=== PATIENT | male | born 1975 | race Caucasian/White ===

== ENCOUNTER 2017-04-06 13:23 | Emergency (ER) | payer MEDICAID ==
[2017-04-06] MEDS ORDERED: KETOROLAC 30 MG/ML 1 ML VIAL IVP STA (14:25)
[2017-04-06] MEDS ORDERED: SODIUM CHLORIDE 0.9% 1,000 ML IV STA (14:25)
--- NOTE | 2017-04-06 14:29 | ED ---
General Adult HPI - General Chief complaint: Abdominal Pain Stated complaint: Back Pain/ poss kidney stones Time Seen by Provider: 04/06/17 14:00 Source: patient, RN notes reviewed Mode of arrival: ambulatory Limitations: no limitations - History of Present Illness Initial comments: This is a 41-year-old male who presents emergency department stating that he has had a kidney stone in the past proximal 26 years ago. Patient states he woke up this morning had a little bit of achiness in his right flank. Patient states the pain is gotten progressively worse. Patient states this pain is reminiscent of the pain he had when he had kidney stones years ago. Patient denies any nausea or vomiting. Patient states he did take some aspirin this morning but hasn't taken anything since. Patient denies any urinary frequency or hematuria. Patient denies any abdominal pain. Patient states the pain does not radiate anywhere. Patient denies any chest pain difficult breathing shortness of breath. Denies any recent fever chills. - Related Data Previous Rx's Medication Instructions Recorded Hydrocodone/Acetaminophen [Magazine 1 each PO Q4HR PRN #20 tab 04/06/17 5-325] Ketorolac [Toradol] 10 mg PO Q6HR #15 tab 04/06/17 Tamsulosin HCl [Flomax] 0.4 mg PO DAILY #5 cap 04/06/17 Allergies Allergy/AdvReac Type Severity Reaction Status Date / Time Penicillins Allergy Unknown Verified 04/06/17 13:57 Childhood Review of Systems ROS Statement: Those systems with pertinent positive or pertinent negative responses have been documented in the HPI. ROS Other: All systems not noted in ROS Statement are negative. Past Medical History Additional Past Medical History / Comment(s): kidney stones History of Any Multi-Drug Resistant Organisms: None Reported Past Surgical History: No Surgical Hx Reported Past Psychological History: No Psychological Hx Reported Smoking Status: Never smoker Past Alcohol Use History: None Reported Past Drug Use History: None Reported General Exam - General Exam Comments Initial Comments: GENERAL: Patient is well-developed and well-nourished. Patient is nontoxic and well- hydrated and is in mild distress. ENT: Neck is soft and supple. No significant lymphadenopathy is noted. Oropharynx is clear. Moist mucous membranes. Neck has full range of motion without eliciting any pain. EYES: The sclera were anicteric and conjunctiva were pink and moist. Extraocular movements were intact and pupils were equal round and reactive to light. Eyelids were unremarkable. PULMONARY: Unlabored respirations. Good breath sounds bilaterally. No audible rales rhonchi or wheezing was noted. CARDIOVASCULAR: There is a regular rate and rhythm without any murmurs gallops or rubs. ABDOMEN: Soft and nontender with normal bowel sounds. No palpable organomegaly was noted. There is no palpable pulsatile mass. SKIN: Skin is clear with no lesions or rashes and otherwise unremarkable. NEUROLOGIC: Patient is alert and oriented x3. Cranial nerves II through XII are grossly intact. Motor and sensory are also intact. Normal speech, volume and content. Symmetrical smile. . MUSCULOSKELETAL: Normal extremities with adequate strength and full range of motion. No lower extremity swelling or edema. No calf tenderness. LYMPHATICS: No significant lymphadenopathy is noted PSYCHIATRIC: Normal psychiatric evaluation. Normal interpersonal interactions appears functionally intact in deals appropriately with others. No signs of depression. Limitations: no limitations Course Vital Signs 04/06/17 04/06/17 13:54 15:11 Temperature 97.8 F Pulse Rate 64 84 Respiratory 18 18 Rate Blood Pressure 176/105 146/95 O2 Sat by Pulse 97 98 Oximetry Medical Decision Making - Medical Decision Making Computed tomography scan shows a UVJ stone measuring 3 mm on the right. This is consistent with the patient's clinical presentation. - Lab Data Result diagrams: 04/06/17 14:26 04/06/17 14:26 Lab Results 04/06/17 04/06/17 04/06/17 Range/Units 14:26 14:26 14:27 WBC 7.5 (3.8-10.6) k/uL RBC 5.30 (4.30-5.90) m/uL Hgb 16.2 (13.0-17.5) gm/dL Hct 47.7 (39.0-53.0) % MCV 89.9 (80.0-100.0) fL MCH 30.5 (25.0-35.0) pg MCHC 34.0 (31.0-37.0) g/dL RDW 14.1 (11.5-15.5) % Plt Count 209 (150-450) k/uL Neutrophils % 76 % Lymphocytes % 16 % Monocytes % 5 % Eosinophils % 2 % Basophils % 0 % Neutrophils # 5.7 (1.3-7.7) k/uL Lymphocytes # 1.2 (1.0-4.8) k/uL Monocytes # 0.4 (0-1.0) k/uL Eosinophils # 0.1 (0-0.7) k/uL Basophils # 0.0 (0-0.2) k/uL Sodium 140 (137-145) mmol/L Potassium 4.2 (3.5-5.1) mmol/L Chloride 107 (98-107) mmol/L Carbon Dioxide 24 (22-30) mmol/L Anion Gap 9 mmol/L BUN 13 (9-20) mg/dL Creatinine 0.81 (0.66-1.25) mg/dL Est GFR (MDRD) Af Amer >60 (>60 ml/min/1.73 sqM) Est GFR (MDRD) Non-Af >60 (>60 ml/min/1.73 sqM) Glucose 101 H (74-99) mg/dL Calcium 9.3 (8.4-10.2) mg/dL Total Bilirubin 1.9 H (0.2-1.3) mg/dL AST 23 (17-59) U/L ALT 32 (21-72) U/L Alkaline Phosphatase 96 (38-126) U/L Total Protein 7.0 (6.3-8.2) g/dL Albumin 4.2 (3.5-5.0) g/dL Amylase 38 (30-110) U/L Lipase 33 (23-300) U/L Urine Color Yellow Urine Appearance Cloudy (Clear) Urine pH 5.5 (5.0-8.0) Ur Specific [place] 1.026 (1.001-1.035) Urine Protein Trace H (Negative) Urine Glucose (UA) Negative (Negative) Urine Ketones Negative (Negative) Urine Blood Large H (Negative) Urine Nitrite Negative (Negative) Urine Bilirubin Negative (Negative) Urine Urobilinogen 2.0 (<2.0) mg/dL Ur Leukocyte Esterase Negative (Negative) Urine RBC 49 H (0-5) /hpf Urine WBC 2 (0-5) /hpf Calcium Oxalate Crystal Occasional H (None) /hpf Urine Mucus Rare H (None) /hpf Disposition Clinical Impression: Kidney stone on right side Disposition: HOME SELF-CARE Condition: Good Instructions: Kidney Stones (ED) Prescriptions: Hydrocodone/Acetaminophen [Magazine 5-325] 1 each PO Q4HR PRN #20 tab PRN Reason: Pain Ketorolac [Toradol] 10 mg PO Q6HR #15 tab Tamsulosin HCl [Flomax] 0.4 mg PO DAILY #5 cap Referrals: Milan Maya MD [Primary Care Provider] - 1-2 days Time of Disposition: 15:41
[2017-04-06 14:40] LABS: Basophils % (A) 0 %; CH 31.5; CHCM 35.2; Eosinophils # (A) 0.1 k/uL (0-0.7); Eosinophils % (A) 2 %; HCT 47.7 % (39.0-53.0); HDW 2.58; HGB 16.2 gm/dL (13.0-17.5); Luc # (Auto) 0.08; Luc % (Auto) 1; Lymphocytes # (A) 1.2 k/uL (1.0-4.8); Lymphocytes % (A) 16 %; MCH 30.5 pg (25.0-35.0); MCV 89.9 fL (80.0-100.0); Mean Platelet Volume 8.2; Monocytes # (A) 0.4 k/uL (0-1.0); Monocytes % (A) 5 %; Neutrophils # (A) 5.7 k/uL (1.3-7.7); Neutrophils % (A) 76 %; RDW 14.1 % (11.5-15.5); WBC 7.5 k/uL (3.8-10.6); WBC (Perox) 7.29
[2017-04-06 14:42] LABS: Appearance,Urine Cloudy (Clear); Bilirubin,Urine Negative (Negative); Calcium Oxalate Crystals,Urine Occasional /hpf; Glucose,Urine (UA) Negative (Negative); Ketones,Urine Negative (Negative); Leukocyte Esterase,Urine Negative (Negative); Mucus,Urine Rare /hpf; Nitrite,Urine Negative (Negative); PH, Urine 5.5 (5.0-8.0); Particle Count 5229; Protein,Urine Trace (Negative); RBC,Urine 49 /hpf (0-5); Specific Gravity,Urine 1.026 (1.001-1.035); UA Billing (MACRO vs. MICRO) MICRO; WBC,Urine 2 /hpf (0-5)
[2017-04-06 14:49] LABS: ALT 32 U/L (21-72); AST 23 U/L (17-59); Alkaline Phosphatase 96 U/L (38-126); Amylase 38 U/L (30-110); Anion Gap 9 mmol/L; Blood Urea Nitrogen 13 mg/dL (9-20); Calcium 9.3 mg/dL (8.4-10.2); Carbon Dioxide 24 mmol/L (22-30); Chloride 107 mmol/L (98-107); Glucose 101 mg/dL (74-99); Non-African American GFR(MDRD) >60 (>60 ml/min/1.73 sqM); Potassium 4.2 mmol/L (3.5-5.1); Sodium 140 mmol/L (137-145); Total Bilirubin 1.9 mg/dL (0.2-1.3)
--- NOTE | 2017-04-06 15:17 | CT ---
EXAMINATION TYPE: CT abdomen pelvis wo con DATE OF EXAM: 04/06/2017 COMPARISON: None. HISTORY: 41-year-old male Right flank pain. CT DLP: 990.00 mGycm. Automated exposure control for dose reduction was used. TECHNIQUE: Contiguous axial scanning of the abdomen and pelvis without IV contrast. Coronal and sagit vandana reconstructions performed. FINDINGS: The heart is normal size without pericardial effusion. Lung bases clear without pleural effusion. Small hiatal hernia. 1 cm hypodensity mid hepatic dome suggestive of a cyst. Otherwise, noncontrast appearance of the live r, gallbladder, adrenal glands spleen, and pancreas show no gross abnormal mobility. Hypodense lesions are noted within both kidneys measuring up to 1.5 cm on the right and 2.0 cm on the left. Underlying cysts are suspected. Approximately two punctate 2 mm calculi in the right kidney. There is mild right-sided pelvocaliectas is and a 3 mm calculus at the right UVJ with asymmetric mild right hydroureter. On the left, there is 2 punctate 2 mm calculi. No dilated small bowel, free fluid, or free air. Scattered nonenlarged mesenteric lymph nodes are not ed. Normal appendix. Scattered mild stool burden. No pericolonic inflammatory change. Bladder is nondistended. Central prostatic calcifications. No abnormal fluid collection in the pelvis or pelvic lymphadenopathy seen. Bones: No osseous destructive process. IMPRESSION: 1. A 3 mm right UVJ calculus causing minimal obstructive uropathy. 2. A couple punctate nonobstructive 2 mm calculi within either kidney. 3. Hypodense renal lesions measuring up to 2 cm. These likely represent cysts but are indeterminate on this study. 4. Small hiatal hernia.
--- NOTE | 2017-04-06 15:59 | XR ---
EXAMINATION TYPE: XR KUB DATE OF EXAM: 04/06/2017 CLINICAL DATA: 41-year-old male with abdominal pain, [facility] COMPARISON: CT today FINDINGS: Lung bases are clear. No evidence for free intraperitoneal air. No dilated small bowel or air-fluid levels. Scattered air and stool seen throughout the colon extendi ng distally into the rectum. Scattered mild to moderate stool burden. A few phleboliths in the pelvis. The tiny calcification seen on CT is not well seen radiographically. IMPRESSION: Known right UVJ calculus and punctate renal calculi not radiographically apparent. Pelvic phleboliths . Mild to moderate stool. Nonobstructive bowel gas pattern. No free air.
[2017-04-06 16:07] VITALS: BP 128/84; PULSE 67; RESP 16; TEMP 97.9
== END 2017-04-06 16:05 | disposition home or self-care (01) ==
LOC: EC 13:23
DX: N20.0 Calculus of kidney (principal); Z88.0 Allergy status to penicillin
CPT/HCPCS: 36415; 80053; 82150; 83690; 85025; 81001; 74000; 74176; 99284; 96374; 96361 ×2; J1885

== ENCOUNTER → 2019-06-11 | Outpatient (CLI) | payer MEDICAID ==
[2019-06-11 11:53] LABS: Basophils % (A) 1 %; Eosinophils # (A) 0.1 k/uL (0-0.7); Eosinophils % (A) 1 %; HCT 47.2 % (39.0-53.0); HGB 15.6 gm/dL (13.0-17.5); Lymphocytes # (A) 1.5 k/uL (1.0-4.8); Lymphocytes % (A) 22 %; MCH 29.4 pg (25.0-35.0); MCHC 33.1 g/dL (31.0-37.0); MCV 88.8 fL (80.0-100.0); Mean Platelet Volume 6.4; Monocytes # (A) 0.3 k/uL (0-1.0); Monocytes % (A) 5 %; Neutrophils # (A) 4.6 k/uL (1.3-7.7); Neutrophils % (A) 70 %; Platelet Count 214 k/uL (150-450); RBC 5.31 m/uL (4.30-5.90); WBC 6.6 k/uL (3.8-10.6)
[2019-06-11 16:15] LABS: African American GFR (CKD) 119.1 (60.0-200.0); Albumin 4.6 g/dL (3.80-4.90); Albumin/Globulin Ratio 2.19 (1.60-3.17); Anion Gap 7.5 mmol/L (4.00-12.00); BUN/Creat Ratio 16.67 Ratio (12.00-20.00); Calcium 9.7 mg/dL (8.7-10.3); Carbon Dioxide 28.5 mmol/L (21.6-31.8); Chol/HDL Ratio 3.45; Globulin 2.1 g/dL (1.6-3.3); LDL Cholesterol,Calculated 135.2 mg/dL (0.0-131.0); Potassium 4.4 mmol/L (3.5-5.5); Total Bilirubin 2.1 mg/dL (0.3-1.2); Total Protein 6.7 g/dL (6.2-8.2); VLDL Calculation 11.8 mg/dL (5.00-40.00)
== END ==
LOC: LABWHC1 10:47
PROVIDERS: ATTEND Family Medicine
DX: Z00.00 Encounter for general adult medical examination without abnormal findings (principal)
CPT/HCPCS: 36415; 80053; 80061; 82306; 85025

== ENCOUNTER → 2019-06-25 | Outpatient (CLI) | payer MEDICAID ==
[2019-06-25 12:13] LABS: African American GFR (CKD) 119.1 (60.0-200.0); Albumin 4.5 g/dL (3.80-4.90); Albumin/Globulin Ratio 2.14 (1.60-3.17); Anion Gap 6.6 mmol/L (4.00-12.00); BUN/Creat Ratio 21.11 Ratio (12.00-20.00); Calcium 9.3 mg/dL (8.7-10.3); Carbon Dioxide 28.4 mmol/L (21.6-31.8); Globulin 2.1 g/dL (1.6-3.3); Non-African American GFR(CKD) 102.8 (60.0-200.0); Potassium 4.6 mmol/L (3.5-5.5); Total Protein 6.6 g/dL (6.2-8.2)
== END | disposition home or self-care (01) ==
LOC: LABWHC1 06:58
PROVIDERS: ATTEND Family Medicine
DX: I10 Essential (primary) hypertension (principal)
CPT/HCPCS: 36415; 80053

== ENCOUNTER 2019-07-09 10:39 | Emergency (ER) | payer MEDICAID ==
[2019-07-09 10:47] VITALS: TEMP 97.9
[2019-07-09] MEDS ORDERED: SODIUM CHLORIDE 0.9% 1,000 ML IV STA (11:00)
[2019-07-09 11:30] LABS: Glucose,Whole Blood 90 mg/dL (75-99)
[2019-07-09 11:37] LABS: Basophils % (A) 0 %; Eosinophils # (A) 0.1 k/uL (0-0.7); Eosinophils % (A) 2 %; HCT 43.7 % (39.0-53.0); HGB 14.9 gm/dL (13.0-17.5); Lymphocytes # (A) 1.1 k/uL (1.0-4.8); Lymphocytes % (A) 20 %; MCH 30.1 pg (25.0-35.0); MCHC 34.2 g/dL (31.0-37.0); MCV 88.1 fL (80.0-100.0); Mean Platelet Volume 6.2; Monocytes # (A) 0.2 k/uL (0-1.0); Monocytes % (A) 5 %; Neutrophils # (A) 3.8 k/uL (1.3-7.7); Neutrophils % (A) 72 %; Platelet Count 194 k/uL (150-450); RBC 4.96 m/uL (4.30-5.90); RDW 12.6 % (11.5-15.5); WBC 5.3 k/uL (3.8-10.6)
[2019-07-09 11:40] LABS: Partial Thromboplastin Time 25.5 sec (22.0-30.0); Prothrombin Time 10.5 sec (9.0-12.0)
[2019-07-09 11:45] LABS: ALT 33 U/L (21-72); AST 27 U/L (17-59); African American GFR (CKD) >90 (>60 ml/min/1.73 sqM); Alkaline Phosphatase 78 U/L (38-126); Anion Gap 8 mmol/L; Blood Urea Nitrogen 19 mg/dL (9-20); Calcium 9.2 mg/dL (8.4-10.2); Carbon Dioxide 26 mmol/L (22-30); Chloride 107 mmol/L (98-107); Glucose 85 mg/dL (74-99); Potassium 4.1 mmol/L (3.5-5.1); Sodium 141 mmol/L (137-145); Total Protein 6.8 g/dL (6.3-8.2)
--- NOTE | 2019-07-09 11:47 | ED ---
General Adult HPI - General Chief complaint: Dizziness Stated complaint: Light headed, sweating Time Seen by Provider: 07/09/19 10:50 Source: patient, RN notes reviewed Mode of arrival: wheelchair Limitations: no limitations - History of Present Illness Initial comments: 43-year-old male with a past medical history of kidney stones presents to the emergency department for a chief complaint of lightheadedness. Patient states he was working and walking down a hallway. States he suddenly became lightheaded and diaphoretic. States he fell acute is going to pass out. He denies any chest pain or shortness of breath. States a nurse at the Hospital t old him he should be evaluated. Patient states he is feeling significantly better though somewhat mildly lightheaded. Patient has never had cardiac workup. 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 - Related Data Previous Rx's Medication Instructions Recorded Hydrocodone/Acetaminophen [[place] 1 each PO Q4HR PRN #20 tab 04/06/17 5-325] Ketorolac [Toradol] 10 mg PO Q6HR #15 tab 04/06/17 Tamsulosin HCl [Flomax] 0.4 mg PO DAILY #5 cap 04/06/17 Allergies Allergy/AdvReac Type Severity Reaction Status Date / Time Penicillins Allergy Unknown Verified 07/09/19 10:47 Childhood Review of Systems ROS Statement: Those systems with pertinent positive or pertinent negative responses have been documented in the HPI. ROS Other: All systems not noted in ROS Statement are negative. Past Medical History Additional Past Medical History / Comment(s): kidney stones History of Any Multi-Drug Resistant Organisms: None Reported Past Surgical History: No Surgical Hx Reported Past Psychological History: No Psychological Hx Reported Smoking Status: Never smoker Past Alcohol Use History: None Reported Past Drug Use History: None Reported General Exam Limitations: no limitations General appearance: alert, in no apparent distress Head exam: Present: atraumatic, normocephalic, normal inspection Eye exam: Present: normal appearance, PERRL, EOMI. Absent: scleral icterus, co njunctival injection, periorbital swelling ENT exam: Present: normal exam, mucous membranes moist Neck exam: Present: normal inspection, full ROM. Absent: tenderness, meningismus, lymphadenopathy Respiratory exam: Present: normal lung sounds bilaterally. Absent: respiratory distress, wheezes, rales, rhonchi, stridor Cardiovascular Exam: Present: regular rate, normal rhythm, normal heart sounds. Absent: systolic murmur, diastolic murmur, rubs, gallop, clicks GI/Abdominal exam: Present: soft, normal bowel sounds. Absent: distended, tenderness, guarding, rebound, rigid Neurological exam: Present: alert, oriented X3 Psychiatric exam: Present: normal affect, normal mood Course Vital Signs 07/09/19 07/09/19 10:45 11:30 Temperature 97.9 F Pulse Rate 77 60 Respiratory 18 12 Rate Blood Pressure 123/85 132/87 O2 Sat by Pulse 98 99 Oximetry EKG Findings - EKG Comments: EKG Findings:: NSR, RBBB, vent rate 63, AK int 140, QTc 454 Medical Decision Making - Medical Decision Making Dr suggs reviewed EKG, recommended d-dimer Vitals are stable. Blood pressure is 123/85. Heart rate 77 and 66. CBC and CMP are unremarkable. D-dimer is normal. Troponin is negative. Total bilirubin is 2.0 which is stable. Chest x-ray shows no acute process. Patient was reevaluated, feeling much better. Back to his baseline. At this time patient will be discharged home. Recommend follow-up with primary care for possible cardiology referral. Again patient denies any chest pain or shortness of breath. Should he have these he will return immediately to the emergency department.I discussed this case with attending Dr. Suggs who agrees with this assessment and treatment plan. - Lab Data Result diagrams: 07/09/19 11:16 07/09/19 11:16 Lab Results 07/09/19 07/09/19 07/09/19 Range/Units 11:16 11:16 11:16 WBC 5.3 (3.8-10.6) k/uL RBC 4.96 (4.30-5.90) m/uL Hgb 14.9 (13.0-17.5) gm/dL Hct 43.7 (39.0-53.0) % MCV 88.1 (80.0-100.0) fL MCH 30.1 (25.0-35.0) pg MCHC 34.2 (31.0-37.0) g/dL RDW 12.6 (11.5-15.5) % Plt Count 194 (150-450) k/uL Neutrophils % 72 % Lymphocytes % 20 % Monocytes % 5 % Eosinophils % 2 % Basophils % 0 % Neutrophils # 3.8 (1.3-7.7) k/uL Lymphocytes # 1.1 (1.0-4.8) k/uL Monocytes # 0.2 (0-1.0) k/uL Eosinophils # 0.1 (0-0.7) k/uL Basophils # 0.0 (0-0.2) k/uL PT 10.5 (9.0-12.0) sec INR 1.0 (<1.2) APTT 25.5 (22.0-30.0) sec D-Dimer (<0.60) mg/L FEU Sodium 141 (137-145) mmol/L Potassium 4.1 (3.5-5.1) mmol/L Chloride 107 (98-107) mmol/L Carbon Dioxide 26 (22-30) mmol/L Anion Gap 8 mmol/L BUN 19 (9-20) mg/dL Creatinine 0.91 (0.66-1.25) mg/dL Est GFR (CKD-EPI)AfAm >90 (>60 ml/min/1.73 sqM) Est GFR (CKD-EPI)NonAf >90 (>60 ml/min/1.73 sqM) Glucose 85 (74-99) mg/dL POC Glucose (mg/dL) (75-99) mg/dL POC Glu Diet Clerk ID Calcium 9.2 (8.4-10.2) mg/dL Total Bilirubin 2.0 H (0.2-1.3) mg/dL AST 27 (17-59) U/L ALT 33 (21-72) U/L Alkaline Phosphatase 78 (38-126) U/L Troponin I (0.000-0.034) ng/mL Total Protein 6.8 (6.3-8.2) g/dL Albumin 4.0 (3.5-5.0) g/dL 07/09/19 07/09/19 07/09/19 Range/Units 11:16 11:16 11:28 WBC (3.8-10.6) k/uL RBC (4.30-5.90) m/uL Hgb (13.0-17.5) gm/dL Hct (39.0-53.0) % MCV (80.0-100.0) fL MCH (25.0-35.0) pg MCHC (31.0-37.0) g/dL RDW (11.5-15.5) % Plt Count (150-450) k/uL Neutrophils % % Lymphocytes % % Monocytes % % Eosinophils % % Basophils % % Neutrophils # (1.3-7.7) k/uL Lymphocytes # (1.0-4.8) k/uL Monocytes # (0-1.0) k/uL Eosinophils # (0-0.7) k/uL Basophils # (0-0.2) k/uL PT (9.0-12.0) sec INR (<1.2) APTT (22.0-30.0) sec D-Dimer 0.20 (<0.60) mg/L FEU Sodium (137-145) mmol/L Potassium (3.5-5.1) mmol/L Chloride (98-107) mmol/L Carbon Dioxide (22-30) mmol/L Anion Gap mmol/L BUN (9-20) mg/dL Creatinine (0.66-1.25) mg/dL Est GFR (CKD-EPI)AfAm (>60 ml/min/1.73 sqM) Est GFR (CKD-EPI)NonAf (>60 ml/min/1.73 sqM) Glucose (74-99) mg/dL POC Glucose (mg/dL) 90 (75-99) mg/dL POC Glu Diet Clerk ID Lori Pena Calcium (8.4-10.2) mg/dL Total Bilirubin (0.2-1.3) mg/dL AST (17-59) U/L ALT (21-72) U/L Alkaline Phosphatase (38-126) U/L Troponin I <0.012 (0.000-0.034) ng/mL Total Protein (6.3-8.2) g/dL Albumin (3.5-5.0) g/dL - EKG Data -: EKG Interpreted by Me (and Dr Bayudan) Disposition Clinical Impression: Near syncope Disposition: HOME SELF-CARE Condition: Good Instructions (If sedation given, give patient instructions): Near Syncope (ED) Additional Instructions: Please follow up with primary care in 1-2 days for possible cardiology referral. Return to the emergency department if you have any worsening symptoms such as chest pain or shortness of breath. Is patient prescribed a controlled substance at d/c from ED?: No Referrals: Milan Maya MD [Primary Care Provider] - 1-2 days Time of Disposition: 13:30
--- NOTE | 2019-07-09 12:39 | XR ---
EXAMINATION TYPE: XR chest 2V DATE OF EXAM: 07/09/2019 COMPARISON: 04/10/2012 TECHNIQUE: PA and lateral views submitted. HISTORY: Diaphoreses FINDINGS: The lungs are clear and there is no pneumothorax, pleural effusion, or focal pneumonia. Hyperinflat ion suggests COPD. Biapical pleural thickening. Heart mildly prominent. IMPRESSION: 1. No acute process.
[2019-07-09 13:39] VITALS: BP 127/84; PULSE 58; RESP 18
== END 2019-07-09 13:48 | disposition home or self-care (01) ==
LOC: EC 10:39
DX: R55 Syncope and collapse (principal); R61 Generalized hyperhidrosis; Z88.0 Allergy status to penicillin; W19.XXXA Unspecified fall, initial encounter; Y93.01 Activity, walking, marching and hiking; Y92.89 Other specified places as the place of occurrence of the external cause
CPT/HCPCS: 36415; 71046; 80053; 84484; 85025; 85379; 85610; 85730; 93005; 96360; 99284

== ENCOUNTER → 2019-07-10 | Outpatient (CLI) | payer MEDICAID ==
--- NOTE | 2019-07-12 11:32 | MR ---
EXAMINATION TYPE: MR angio head wo/neck wo/w con DATE OF EXAM: 07/10/2019 COMPARISON: NONE HISTORY: Headache, abn. Eye exam TECHNIQUE: Utilizing 3-D [id number] intracranial MRA of the [place] and neck was performed. FINDINGS: The vertebrobasilar and carotid systems are patent. There is hypoplastic A1 segment of the anterior c erebral artery A1 segment. At the left MCA trifurcation there is a 3 mm area of focal dilation compat ible with a small aneurysm. Left vertebral artery is dominant. There is configuration on the right with origin of the poste rior cerebral artery from the internal circulation. Evaluation of the carotid bifurcations demonstrates a dominant left vertebral artery. Carotid bifurca tions are widely patent with no significant stenosis. Common carotid arteries. IMPRESSION: 1. 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 2. No significant stenosis involving the carotid bifurcations.
== END ==
LOC: RADMRIMAIN 16:38
PROVIDERS: ATTEND Psychiatry & Neurology Neurology
DX: I67.1 Cerebral aneurysm, nonruptured (principal); M54.2 Cervicalgia
CPT/HCPCS: 70544; 70549; A9585

== ENCOUNTER → 2019-07-13 | Outpatient (CLI) | payer MEDICAID ==
--- NOTE | 2019-07-13 19:13 | MR ---
EXAMINATION TYPE: MR brain/cspine wo DATE OF EXAM: 07/13/2019 6:14 PM COMPARISON: NONE HISTORY: Headaches and neck pain Multiplanar and multispin-echo imaging of the brain was performed . The ventricles, basal cisterns and sulci overlying the cerebral convexities are within normal limits. There is no evidence for midline shift or mass effect. Acute intracranial hemorrhage or extra-axial collection is not evident. The brain parenchyma reveals no abnormal increased signal. No acute edema is identified. The paranasal sinuses and mastoid air cells are well-aerated. IMPRESSION: Unremarkable MRI of the brain. EXAMINATION TYPE: MR brain/cspine wo DATE OF EXAM: 07/13/2019 6:14 PM COMPARISON: NONE HISTORY: Headaches and neck pain Multiplanar MultiSpin echo imaging of the cervical spine was performed. Comparison: none C2-C3: No evidence for degenerative disc disease. No disc bulge/herniation or protrusion. No Canal stenosis. [place] are patent bilaterally. C3-C4: No evidence for degenerative disc disease. No disc bulge/herniation or protrusion. No Canal stenosis. [place] are patent bilaterally. C4-C5: No evidence for degenerative disc disease. No disc bulge/herniation or protrusion. No Canal stenosis. [place] are patent bilaterally. C5-C6: No evidence for degenerative disc disease. No disc bulge/herniation or protrusion. No Canal stenosis. [place] are patent bilaterally. C6-C7: No evidence for degenerative disc disease. No disc bulge/herniation or protrusion. No Canal stenosis. [place] are patent bilaterally. C7-T1: No evidence for degenerative disc disease. No disc bulge/herniation or protrusion. No Canal stenosis. [place] are patent bilaterally. Cervical segments are intact. There is normal alignment. Cervical spinal cord is of normal signal. Craniovertebral junction relationships are within normal limits. IMPRESSION: 1. No distinct abnormality appreciated.
== END | disposition home or self-care (01) ==
LOC: RADMRIMAIN 17:28
PROVIDERS: ATTEND Psychiatry & Neurology Neurology
DX: M54.2 Cervicalgia (principal); R51 Headache
CPT/HCPCS: 70551; 72141

== ENCOUNTER → 2019-09-08 | Outpatient (CLI) | payer MEDICAID ==
--- NOTE | 2019-09-08 11:56 | ECHOF ---
Referral Reason:I10 hypertension, R42 dizziness MEASUREMENTS -------- HEIGHT: 182.9 cm WEIGHT: 88.9 kg BP: RVIDd: 3.9 cm (< 3.3) IVSd: 0.9 cm (0.6 - 1.1) LVIDd: 4.6 cm (3.9 - 5.3) LVPWd: 1.1 cm (0.6 - 1.1) IVSs: 1.3 cm LVIDs: 3.0 cm LVPWs: 1.5 cm LAESV Index (A-L): 20.19 ml/m Ao Diam: 2.7 cm (2.0 - 3.7) AV Cusp: 2.1 cm (1.5 - 2.6) LA Diam: 3.3 cm (2.7 - 3.8) MV EXCURSION: 28.850 mm (> 18.000) MV EF SLOPE: 117 mm/s (70 - 150) EPSS: 0.3 cm MV E Donta: 0.63 m/s MV DecT: 275 ms MV A D[place]: 0.76 m/s MV E/A Ratio: 0.83 RAP: 5.00 mmHg RVSP: 25.10 mmHg FINDINGS -------- Sinus rhythm. This was a technically good study. LV size, wall thickness and systolic function are normal, with an EF greater than 55%. The left eunice tricular size is normal. The diastolic filling pattern is normal for the age of the patient 7.26. The right ventricle is moderately enlarged. The left atrial size is normal. Normal LA size by volume 22+/-6 ml/m2. The right atrial size is normal. There is mild aortic valve sclerosis. There is no evidence of aortic regurgitation. Mild mitral annular calcification present. Mild mitral regurgitation is present. Mild tricuspid regurgitation present. Right ventricular systolic pressure is normal at < 35 mmHg. There is no evidence of pulmonary hypertension. There is no pulmonic regurgitation present. The aortic root size is normal. There is no pericardial effusion. CONCLUSIONS -------- 1. Sinus rhythm. 2. This was a technically good study. 3. LV size, wall thickness and systolic function are normal, with an EF greater than 55%. 4. The left ventricular size is normal. 5. The diastolic filling pattern is normal for the age of the patient 7.26 6. The right ventricle is moderately enlarged. 7. The left atrial size is normal. 8. Normal LA size by volume 22+/-6 ml/m2. 9. The right atrial size is normal. 10. There is mild aortic valve sclerosis. 11. Mild mitral annular calcification present. 12. Mild mitral regurgitation is present. 13. Mild tricuspid regurgitation present. 14. Right ventricular systolic pressure is normal at < 35 mmHg. 15. There is no evidence of pulmonary hypertension. 16. There is no pulmonic regurgitation present. 17. The aortic root size is normal. 18. There is no pericardial effusion. [employer]: Nabila Lozada RDCS
== END | disposition home or self-care (01) ==
LOC: RADECHMAIN 10:32
PROVIDERS: ATTEND Internal Medicine Interventional Cardiology
DX: I08.3 Combined rheumatic disorders of mitral, aortic and tricuspid valves (principal); I49.1 Atrial premature depolarization; I10 Essential (primary) hypertension
CPT/HCPCS: 93225; 93226; 93306

== ENCOUNTER → 2019-09-18 | Outpatient (CLI) | payer MEDICAID ==
--- NOTE | 2019-09-18 12:45 | EST ---
EXERCISE STRESS AGE: 43 SEX: M HT: 72" WT: 195 PROTOCOL: Eduardo Stress Test STAGE: 3 DURATION OF EXERCISE: 9:00 HEART RATE REST: 71 BLOOD PRESSURE REST: 125/98 MAXIMUM HEART RATE ACHIEVED: 151 MAXIMUM BLOOD PRESSURE: 236/100 85% MPHR: 149 100% MPHR: 175 METS: 10.5 INDICATIONS: RBBB CLINICAL INFORMATION: A stress exercise study was performed. Patient was exercised for a total period of 9 minutes. Peak heart rate of 151 was achieved. Maximum blood pressure of 236/100 mmHg was noted. Patient did not complain of any chest pain during the test. Resting EKG shows normal sinus rhythm with normal SD interval and QRS duration with a QRS morphology suggestive for right bundle branch block pattern was noted during exercise J- point depression with upsloping ST segments were noted. FINAL IMPRESSION: 1. This exercise test is in not suggestive of ischemia. 2. There is a baseline EKG abnormality of the right bundle branch block pattern. 3. Patient's exercise tolerance is normal. Patient did not complain of any anginal pain during the test. MMODL / IJN: [id number] /
== END | disposition home or self-care (01) ==
LOC: RADNMMAIN 08:30
PROVIDERS: ATTEND Internal Medicine Interventional Cardiology
DX: I45.10 Unspecified right bundle-branch block (principal); R94.31 Abnormal electrocardiogram [ECG] [EKG]
CPT/HCPCS: 93017

== ENCOUNTER → 2021-05-23 | Outpatient (CLI) | payer MEDICAID ==
[2021-05-23 16:32] LABS: Basophils # (A) 0.04 X 10*3/uL (0.00-0.10); Basophils % (A) 0.8 %; Eosinophils # (A) 0.12 X 10*3/uL (0.04-0.35); Eosinophils % (A) 2.4 %; Lymphocytes # (A) 1.18 X 10*3/uL (0.90-5.00); Lymphocytes % (A) 23.6 %; MCH 29.4 pg (27.0-32.0); MCHC 32.7 g/dL (32.0-37.0); MCV 89.9 fL (80.0-97.0); Mean Platelet Volume 10.5 fL (9.5-12.2); Monocytes # (A) 0.34 X 10*3/uL (0.20-1.00); Monocytes % (A) 6.8 %; Neutrophils # (A) 3.31 X 10*3/uL (1.80-7.70); Neutrophils % (A) 66.2 %; Platelet Count 204 X 10*3/uL (140-440); RBC 5.45 X 10*6/uL (4.40-5.60); RDW 12.9 % (11.5-14.5)
[2021-05-24 23:25] LABS: African American GFR (CKD) 105.1 (60.0-200.0); Albumin 4.3 g/dL (3.8-4.9); Albumin/Globulin Ratio 1.9 (1.60-3.17); Anion Gap 17.6 mmol/L (4.00-12.00); BUN/Creat Ratio 14.89 Ratio (12.00-20.00); Blood Urea Nitrogen 14.7 mg/dL (9.0-27.0); Calcium 9.3 mg/dL (8.7-10.3); Carbon Dioxide 18.9 mmol/L (21.6-31.8); Chol/HDL Ratio 3.27 Ratio; Globulin 2.3 g/dL (1.6-3.3); HDL Cholesterol 59.4 mg/dL (40.00-60.00); LDL Cholesterol,Calculated 125.9 mg/dL (0.0-131.0); Non-African American GFR(CKD) 90.7 (60.0-200.0); Potassium 4.4 mmol/L (3.5-5.5); Total Bilirubin 1.2 mg/dL (0.30-1.20); Total Protein 6.6 g/dL (6.2-8.2); Triglycerides 43.4 mg/dL (0.00-149.00); VLDL Calculation 8.68 mg/dL (5.00-40.00)
[2021-05-25 03:18] LABS: PSA Annual Screen 0.6 ng/mL (0.000-4.000)
== END | disposition home or self-care (01) ==
LOC: LABWHC1 07:37
PROVIDERS: ATTEND Family Medicine
DX: Z00.00 Encounter for general adult medical examination without abnormal findings (principal)
CPT/HCPCS: 80061; 80053; 85025; 36415; G0103

== ENCOUNTER → 2021-06-20 | Outpatient (CLI) | payer MEDICAID ==
[2021-06-20 16:07] LABS: African American GFR (CKD) 117.5 (60.0-200.0); Albumin 4.5 g/dL (3.8-4.9); Albumin/Globulin Ratio 2.05 (1.60-3.17); Anion Gap 11.1 mmol/L (4.00-12.00); BUN/Creat Ratio 18.11 Ratio (12.00-20.00); Blood Urea Nitrogen 16.3 mg/dL (9.0-27.0); Calcium 9.4 mg/dL (8.7-10.3); Carbon Dioxide 23.9 mmol/L (21.6-31.8); Globulin 2.2 g/dL (1.6-3.3); Non-African American GFR(CKD) 101.4 (60.0-200.0); Potassium 4.4 mmol/L (3.5-5.5); Total Bilirubin 1.1 mg/dL (0.30-1.20); Total Protein 6.7 g/dL (6.2-8.2)
== END | disposition home or self-care (01) ==
LOC: LABWHC1 08:11
PROVIDERS: ATTEND Family Medicine
DX: I10 Essential (primary) hypertension (principal); E55.9 Vitamin D deficiency, unspecified
CPT/HCPCS: 36415; 80053; 82306